=== PATIENT | male | born 1975 | race Caucasian/White ===

== ENCOUNTER → 2023-12-24 09:38 | Outpatient (REF) | payer MEDICARE, BC, SELFPAY | LOC: CLAB 09:38 | PROVIDERS: ATTENDING PHYSICIAN Surgery | DX: N39.0 Urinary tract infection, site not specified (principal) | CPT/HCPCS: 87086 ==

== ENCOUNTER 2024-08-03 06:20 | Day surgery (SDC) | payer MEDICARE, BC, SELFPAY ==
--- NOTE | 2024-07-31 15:15 | PTCARENOTE ---
Patient takes Advate for hemophilia- patient to take usual dose preop per Dr. Ahn
[2024-08-03] VITALS (8 sets, daily range): BP systolic 101–120; BP diastolic 71–89; BMI 28.1
[2024-08-03] MEDS: DILAUDID 0.25 MG IV (15:16)
[2024-08-03] MEDS: LIDOCAINE URO-JET 2% 2 SYRINGE TOPICAL (15:43)
== END 2024-08-03 17:06 | disposition home or self-care (01) ==
LOC: SDS 06:20
PROVIDERS: ATTENDING PHYSICIAN Surgery
DX: N35.912 Unspecified bulbous urethral stricture, male (principal); R33.9 Retention of urine, unspecified; K59.02 Outlet dysfunction constipation
CPT/HCPCS: 52284; 74018; 76000; C1726; C1769

== ENCOUNTER → 2025-02-26 16:02 | Outpatient (REF) | payer MEDICARE, BC, SELFPAY | LOC: RAD 16:02 | PROVIDERS: ATTENDING PHYSICIAN Internal Medicine Hematology & Oncology; FAMILY PHYSICIAN Internal Medicine Infectious Disease | DX: D66 Hereditary factor VIII deficiency (principal); M25.00 Hemarthrosis, unspecified joint; D50.9 Iron deficiency anemia, unspecified; M25.08 Hemarthrosis, other specified site; M25.50 Pain in unspecified joint; R60.0 Localized edema | CPT/HCPCS: 71275; 93970; Q9967 ==

== ENCOUNTER → 2025-06-10 12:23 | Outpatient (REF) | payer MEDICARE, BC, SELFPAY ==
[2025-06-10 13:24] LABS: Hematocrit 41.2 % (39.0-52.0); Hemoglobin 14.2 g/dL (13.0-18.0); Mean Corp Hgb Conc. 34.5 g/dL (33.0-37.0); Mean Corpuscular Volume 100.2 fL (80.0-94.0); Nucleated Red Blood Cells % 0 % (-); Platelet Count 259 10^3/uL (130-400); Red Cell Dist. Width 13.4 % (11.5-14.5)
[2025-06-10 13:52] LABS: Iron 79 ug/dl (49-181)
[2025-06-10 14:02] LABS: Total Iron Binding Capacity 320 ug/dl (261-462)
[2025-06-10 14:27] LABS: Ferritin 51.3 ng/ml (17.9-464.0)
== END ==
LOC: REG 12:23
PROVIDERS: ATTENDING PHYSICIAN Internal Medicine Hematology & Oncology; OTHER PHYSICIAN Internal Medicine Infectious Disease
DX: D66 Hereditary factor VIII deficiency (principal); M25.00 Hemarthrosis, unspecified joint; D50.9 Iron deficiency anemia, unspecified; M25.08 Hemarthrosis, other specified site; M25.50 Pain in unspecified joint
CPT/HCPCS: 36415; 82728; 83540; 83550; 85025; 85240

== ENCOUNTER 2025-07-30 12:58 | Inpatient (IN) | payer MEDICARE, BC, SELFPAY ==
[2025-07-30] VITALS (12 sets, daily range): BP systolic 131–157; BP diastolic 79–100; BMI 24.7; BMI 24.0
--- NOTE | 2025-07-30 04:59 | ED.GENMED ---
History of Present Illness
<Antonio Ponce Jr., PA-C - Last Filed: 07/30/25 06:00>
General
Chief Complaint: Crisis Evaluation
Source: patient and family
Exam Limitations: none
Time Seen by Provider: 07/30/25 04:55
Nursing documentation reviewed up to this point in time: agreed with
History of Present Illness
History of Present Illness:
50-year-old male HIV-positive hemophilia subs abuse presenting to the emergency department today with concerns of delusions and hallucinations according to mother. Mother plans to file a 302 for him. Here the patient has a flight of ideas is very
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 Denies any thoughts of harming self or others and denies any medical symptoms at this time. Patient is unaware of whether he is taking any medications appropriately.
Past History
<Antonio Ponce Jr., PA-C - Last Filed: 07/30/25 06:00>
Past History
ED Past Medical History: Psychiatric (drug abuse) and Other (HIV. Hemophilia)
Social History
Tobacco: Smoker
Drug: Cocaine, Narcotics and Other (denies IV drug use)
Personal: Single
Living: with family
Review of Systems
<Antonio Ponce Jr., PA-C - Last Filed: 07/30/25 06:00>
Review of Systems
Allergies reviewed?: Yes
All Other Systems: ROS reviewed and negative except as documented in HPI and ROS
Phy Exam
<MELISSA Dale Jr. Last Filed: 07/30/25 06:00>
Physical Exam
Physical Exam:
GENERAL: Alert , in no apparent distress
EYE: pupils equal and reactive
NECK: Supple, no significant adenopathy.
ENT: o/p clr, mmm.
CARDIAC: Regular rate and rhythm .
LUNGS: Clear breath sounds bilaterally, no acute respiratory distress, no wheezes/rales/rhonchi
ABDOMEN: Soft, without focal tenderness, no r/g, no cvat
NEUROLOGICAL: Alert and oriented, no focal neuro deficits
SKIN: Warm and dry, skin intact.
MUSCULOSKELETAL: No edema, well perfused.
PSYCH: Patient is very tangential seems to have delusions of grandeur
Course
<Antonio Ponce Jr., PA-C - Last Filed: 07/30/25 06:00>
Orders/Labs/Results
Orders:
Orders
07/30/25 04:55
Electrocardiogram (*1) Urgent
Reason for Study: Tachycardia
07/30/25 04:56
Crisis Consult Urgent
Reason for Consult: possible 302
EKG- Treatment ONCE
Urine Drug Abuse Screen Urgent
Date Specimen was Collected: 07/30/25
Time Specimen was Collected: 04:56
07/30/25 05:08
Alcohol Urgent
Basic Metabolic Panel Urgent
Complete Blood Count/With Diff Urgent
Syphilis/T. pallidum Ab Reflex Urgent
TSH Reflex To Free T4 Urgent
Comment: ADD ON
07/30/25 05:39
Consult Notification Routine
Specialty to Notify: Psychiatry
Date consulting provider notified: 07/30/25
Time consulting provider notified: 09:51
Notified:: Provider
PSYCHIATRY CONSULT Urgent
Consulting Provider: Delfina Briones
Was physician already notified: No
Reason for consult: hallucinations/delusions
07/30/25 06:20
Add On - Microbiology Urgent
Tests Added?: RPR with reflex
07/30/25 09:49
CT Head W/o Iv Contrast Urgent
Comment:
Reason For Exam: change in mental status, psychosis
HIV-1 Viral Load PCR [HIV-1 by Quantitative NAAT] [S] Urgent
Alprazolam [Xanax] 1 mg PO NOW STA
07/30/25 09:50
Urinalysis Reflex To Culture Urgent
Date Specimen was Collected: 07/30/25
Time Specimen was Collected: 09:51
07/30/25 10:17
Ankle, Right 3 view CR [CR Ankle - Right Min 3 Views *] Urgent
Comment:
Reason For Exam: swelling with pain
07/30/25 10:22
Add On- LAB Urgent
Tests Added?: TSH with reflex to T4, vit b12, folate
07/30/25 10:55
Consult Interventional Radiology [IRAD CONSULT] Urgent
Consulting Provider: Last Gallagher
Was physician already notified: Yes
Procedure being ordered, including laterality if: Lumbar puncture with complete csf analysis, PCR for
applicable: west nile virus, entero
Acknowledgement that appropriate orders are entered: Yes
07/30/25 10:59
NEUROLOGY CONSULT Routine
Consulting Provider: Luis Fernando Calix
Was physician already notified: Yes
07/30/25 11:37
Acid Fast Culture & Smear Urgent
WONG Source: Csf
Specimen Description:
CSF Cell Count Urgent
CSF Cell Count X Urgent
CSF VDRL Reflex To Titer [S] Urgent
Cryptococcal Antigen, CSF [S] Urgent
Lyme PCR, DNA [S] Urgent
Myelin Basic Protein, CSF [S] Urgent
Oligoclonal Band Profile [S] Urgent
Paraneoplastic Ab IgG, CSF [S] Urgent
Spinal Fluid Glucose Urgent
Spinal Fluid Protein Urgent
CSF Culture with Gram Stain Urgent
WONG Source: Csf
Specimen Description:
Fungus Culture Urgent
WONG Source: Csf
Specimen Description:
Gram Stain Routine
WONG Source: Csf
Specimen Description:
Meningitis Panel, CSF by PCR Urgent
WONG Source: Csf
Specimen Description:
07/30/25 11:55
Admit/Transfer Patient As Directed
Co-Sign Provider:
Level of Care: Inpatient admission
Assign to:: IMU- Intermediate Care
Physician / Group: Clark Hanks
Diagnosis: Acute Delirium vs Acute TME vs Psychosis
Reason for Hospitalization: Acute Delirium vs Acute TME vs Psychosis
Expected length of stay greater than two midnights?: Yes
ELOS- Estimated Length of Stay in days: 3
I certify the patient meets the requirements for IP care: Yes
07/30/25 11:58
PRN Pain Medication Management As Directed
May give lesser potent ordered pain med per pt: Yes
preference::
Protocol:: Medication orders for pain may be administered in a
manner that supports deferring to patient preference
when the pt is:
- Requesting an ordered lesser potent pain medication.
Least to most potent pain medications are defined
as: acetaminophen < NSAID < tramadol < opioids
(morphine, oxycodone, hydromorphone).
- Requesting a lesser dose of the same medication IF
ORDERED.
- Requesting a less intrusive route of administration
if both routes are prescribed by the provider (PO <
IV).
07/30/25 12:09
MR Brain Without Contrast Routine
Comment:
Reason For Exam: ACute delirium
Recent pill cam endoscopy?: No
07/30/25 12:13
INFECTIOUS DISEASE CONSULT Routine
Consulting Provider: Oralia Ascencio
Was physician already notified: Yes
07/30/25 12:17
Code Status As Directed
Resuscitation Status: Do not resuscitate
Reached after discussion with pt or family/Healthcare POA: Yes
Bisacodyl [Dulcolax] 10 mg RECTAL [id number] PRN
Docusate W/Senna [Senokot-S] 1 tablet PO BIDPRN PRN
Polyethylene Glycol Powder [Miralax] 17 grams PO DAILYPRN PRN
Activity As Directed
Activity Level: As Tolerated
Vital Signs As Directed
Frequency: Per unit guidelines
07/30/25 12:32
PT/INR [Prothrombin Time] Urgent
Comment: IRAD procedure
07/30/25 12:33
DNR Bracelet Application ONCE
07/30/25 12:48
Blood Culture Routine
WONG Source: Blood/Venous
Specimen Description:
07/30/25 13:00
Acyclovir [Zovirax Injection] 500 mg 0.9% Sodium Chloride 100 ml [Nss] 100 ml IV Q8H
Abnormal Lab Results
07/30/25
05:08
RBC 3.40 L 10^6/uL
(4.70-6.10)
Hgb 11.7 L g/dL
(13.0-18.0)
Hct 32.8 L %
(39.0-52.0)
MCV 96.5 H fL
(80.0-94.0)
MCH 34.4 H pg
(27.0-31.0)
Absolute Lymphs (auto) 1.0 L 10^3/uL
(1.2-3.4)
Lymphocytes % 20.4 L %
(20.5-51.1)
Monocytes % 10.7 H %
(1.7-9.3)
Carbon Dioxide 19 L mmol/L
(22-30)
07/30/25 05:08
07/30/25 05:08
Vital Signs
Initial and Last Documented VS:
Initial Vital Signs
Temp Pulse Resp BP Pulse Ox
98.9 F 84 18 140/95 99
07/30/25 04:57 07/30/25 04:57 07/30/25 04:57 07/30/25 04:57 07/30/25 04:57
Last Documented Vital Signs
Temp Pulse Resp BP Pulse Ox
97.6 F 82 20 134/97 99
07/30/25 11:05 07/30/25 11:05 07/30/25 11:05 07/30/25 11:05 07/30/25 11:05
<Geovani Redding PA-C - Last Filed: 07/30/25 12:57>
Orders/Labs/Results
Orders:
Orders
07/30/25 04:55
Electrocardiogram (*1) Urgent
Reason for Study: Tachycardia
07/30/25 04:56
Crisis Consult Urgent
Reason for Consult: possible 302
EKG- Treatment ONCE
Urine Drug Abuse Screen Urgent
Date Specimen was Collected: 07/30/25
Time Specimen was Collected: 04:56
07/30/25 05:08
Alcohol Urgent
Basic Metabolic Panel Urgent
Complete Blood Count/With Diff Urgent
Syphilis/T. pallidum Ab Reflex Urgent
TSH Reflex To Free T4 Urgent
Comment: ADD ON
07/30/25 05:39
Consult Notification Routine
Specialty to Notify: Psychiatry
Date consulting provider notified: 07/30/25
Time consulting provider notified: 09:51
Notified:: Provider
PSYCHIATRY CONSULT Urgent
Consulting Provider: Delfina Briones
Was physician already notified: No
Reason for consult: hallucinations/delusions
07/30/25 06:20
Add On - Microbiology Urgent
Tests Added?: RPR with reflex
07/30/25 09:49
CT Head W/o Iv Contrast Urgent
Comment:
Reason For Exam: change in mental status, psychosis
HIV-1 Viral Load PCR [HIV-1 by Quantitative NAAT] [S] Urgent
Alprazolam [Xanax] 1 mg PO NOW STA
07/30/25 09:50
Urinalysis Reflex To Culture Urgent
Date Specimen was Collected: 07/30/25
Time Specimen was Collected: 09:51
07/30/25 10:17
Ankle, Right 3 view CR [CR Ankle - Right Min 3 Views *] Urgent
Comment:
Reason For Exam: swelling with pain
07/30/25 10:22
Add On- LAB Urgent
Tests Added?: TSH with reflex to T4, vit b12, folate
07/30/25 10:55
Consult Interventional Radiology [IRAD CONSULT] Urgent
Consulting Provider: Last Gallagher
Was physician already notified: Yes
Procedure being ordered, including laterality if: Lumbar puncture with complete csf analysis, PCR for
applicable: west nile virus, entero
Acknowledgement that appropriate orders are entered: Yes
07/30/25 10:59
NEUROLOGY CONSULT Routine
Consulting Provider: Luis Fernando Calix
Was physician already notified: Yes
07/30/25 11:37
Acid Fast Culture & Smear Urgent
WONG Source: Csf
Specimen Description:
CSF Cell Count Urgent
CSF Cell Count X Urgent
CSF VDRL Reflex To Titer [S] Urgent
Cryptococcal Antigen, CSF [S] Urgent
Lyme PCR, DNA [S] Urgent
Myelin Basic Protein, CSF [S] Urgent
Oligoclonal Band Profile [S] Urgent
Paraneoplastic Ab IgG, CSF [S] Urgent
Spinal Fluid Glucose Urgent
Spinal Fluid Protein Urgent
CSF Culture with Gram Stain Urgent
WONG Source: Csf
Specimen Description:
Fungus Culture Urgent
WONG Source: Csf
Specimen Description:
Gram Stain Routine
WONG Source: Csf
Specimen Description:
Meningitis Panel, CSF by PCR Urgent
WONG Source: Csf
Specimen Description:
07/30/25 11:55
Admit/Transfer Patient As Directed
Co-Sign Provider:
Level of Care: Inpatient admission
Assign to:: IMU- Intermediate Care
Physician / Group: Clark Hanks
Diagnosis: Acute Delirium vs Acute TME vs Psychosis
Reason for Hospitalization: Acute Delirium vs Acute TME vs Psychosis
Expected length of stay greater than two midnights?: Yes
ELOS- Estimated Length of Stay in days: 3
I certify the patient meets the requirements for IP care: Yes
07/30/25 11:58
PRN Pain Medication Management As Directed
May give lesser potent ordered pain med per pt: Yes
preference::
Protocol:: Medication orders for pain may be administered in a
manner that supports deferring to patient preference
when the pt is:
- Requesting an ordered lesser potent pain medication.
Least to most potent pain medications are defined
as: acetaminophen < NSAID < tramadol < opioids
(morphine, oxycodone, hydromorphone).
- Requesting a lesser dose of the same medication IF
ORDERED.
- Requesting a less intrusive route of administration
if both routes are prescribed by the provider (PO <
IV).
07/30/25 12:09
MR Brain Without Contrast Routine
Comment:
Reason For Exam: ACute delirium
Recent pill cam endoscopy?: No
07/30/25 12:13
INFECTIOUS DISEASE CONSULT Routine
Consulting Provider: Oralia Ascencio
Was physician already notified: Yes
07/30/25 12:17
Code Status As Directed
Resuscitation Status: Do not resuscitate
Reached after discussion with pt or family/Healthcare POA: Yes
Bisacodyl [Dulcolax] 10 mg RECTAL [id number] PRN
Docusate W/Senna [Senokot-S] 1 tablet PO BIDPRN PRN
Polyethylene Glycol Powder [Miralax] 17 grams PO DAILYPRN PRN
Activity As Directed
Activity Level: As Tolerated
Vital Signs As Directed
Frequency: Per unit guidelines
07/30/25 12:32
PT/INR [Prothrombin Time] Urgent
Comment: IRAD procedure
07/30/25 12:33
DNR Bracelet Application ONCE
07/30/25 12:48
Blood Culture Routine
WONG Source: Blood/Venous
Specimen Description:
07/30/25 13:00
Acyclovir [Zovirax Injection] 500 mg 0.9% Sodium Chloride 100 ml [Nss] 100 ml IV Q8H
Abnormal Lab Results
07/30/25
05:08
RBC 3.40 L 10^6/uL
(4.70-6.10)
Hgb 11.7 L g/dL
(13.0-18.0)
Hct 32.8 L %
(39.0-52.0)
MCV 96.5 H fL
(80.0-94.0)
MCH 34.4 H pg
(27.0-31.0)
Absolute Lymphs (auto) 1.0 L 10^3/uL
(1.2-3.4)
Lymphocytes % 20.4 L %
(20.5-51.1)
Monocytes % 10.7 H %
(1.7-9.3)
Carbon Dioxide 19 L mmol/L
(22-30)
07/30/25 05:08
07/30/25 05:08
Vital Signs
Initial and Last Documented VS:
Initial Vital Signs
Temp Pulse Resp BP Pulse Ox
98.9 F 84 18 140/95 99
07/30/25 04:57 07/30/25 04:57 07/30/25 04:57 07/30/25 04:57 07/30/25 04:57
Last Documented Vital Signs
Temp Pulse Resp BP Pulse Ox
97.6 F 82 20 134/97 99
07/30/25 11:05 07/30/25 11:05 07/30/25 11:05 07/30/25 11:05 07/30/25 11:05
<Isael Dunn, DO - Last Filed: 07/30/25 10:17>
Orders/Labs/Results
Orders:
Orders
07/30/25 04:55
Electrocardiogram (*1) Urgent
Reason for Study: Tachycardia
07/30/25 04:56
Crisis Consult Urgent
Reason for Consult: possible 302
EKG- Treatment ONCE
Urine Drug Abuse Screen Urgent
Date Specimen was Collected: 07/30/25
Time Specimen was Collected: 04:56
07/30/25 05:08
Alcohol Urgent
Basic Metabolic Panel Urgent
Complete Blood Count/With Diff Urgent
Syphilis/T. pallidum Ab Reflex Urgent
TSH Reflex To Free T4 Urgent
Comment: ADD ON
07/30/25 05:39
Consult Notification Routine
Specialty to Notify: Psychiatry
Date consulting provider notified: 07/30/25
Time consulting provider notified: 09:51
Notified:: Provider
PSYCHIATRY CONSULT Urgent
Consulting Provider: Delfina Briones
Was physician already notified: No
Reason for consult: hallucinations/delusions
07/30/25 06:20
Add On - Microbiology Urgent
Tests Added?: RPR with reflex
07/30/25 09:49
CT Head W/o Iv Contrast Urgent
Comment:
Reason For Exam: change in mental status, psychosis
HIV-1 Viral Load PCR [HIV-1 by Quantitative NAAT] [S] Urgent
Alprazolam [Xanax] 1 mg PO NOW STA
07/30/25 09:50
Urinalysis Reflex To Culture Urgent
Date Specimen was Collected: 07/30/25
Time Specimen was Collected: 09:51
07/30/25 10:17
Ankle, Right 3 view CR [CR Ankle - Right Min 3 Views *] Urgent
Comment:
Reason For Exam: swelling with pain
07/30/25 10:22
Add On- LAB Urgent
Tests Added?: TSH with reflex to T4, vit b12, folate
07/30/25 10:55
Consult Interventional Radiology [IRAD CONSULT] Urgent
Consulting Provider: Last Gallagher
Was physician already notified: Yes
Procedure being ordered, including laterality if: Lumbar puncture with complete csf analysis, PCR for
applicable: west nile virus, entero
Acknowledgement that appropriate orders are entered: Yes
07/30/25 10:59
NEUROLOGY CONSULT Routine
Consulting Provider: Luis Fernando Calix
Was physician already notified: Yes
07/30/25 11:37
Acid Fast Culture & Smear Urgent
WONG Source: Csf
Specimen Description:
CSF Cell Count Urgent
CSF Cell Count X Urgent
CSF VDRL Reflex To Titer [S] Urgent
Cryptococcal Antigen, CSF [S] Urgent
Lyme PCR, DNA [S] Urgent
Myelin Basic Protein, CSF [S] Urgent
Oligoclonal Band Profile [S] Urgent
Paraneoplastic Ab IgG, CSF [S] Urgent
Spinal Fluid Glucose Urgent
Spinal Fluid Protein Urgent
CSF Culture with Gram Stain Urgent
WONG Source: Csf
Specimen Description:
Fungus Culture Urgent
WONG Source: Csf
Specimen Description:
Gram Stain Routine
WONG Source: Csf
Specimen Description:
Meningitis Panel, CSF by PCR Urgent
WONG Source: Csf
Specimen Description:
07/30/25 11:55
Admit/Transfer Patient As Directed
Co-Sign Provider:
Level of Care: Inpatient admission
Assign to:: IMU- Intermediate Care
Physician / Group: Clark Hanks
Diagnosis: Acute Delirium vs Acute TME vs Psychosis
Reason for Hospitalization: Acute Delirium vs Acute TME vs Psychosis
Expected length of stay greater than two midnights?: Yes
ELOS- Estimated Length of Stay in days: 3
I certify the patient meets the requirements for IP care: Yes
07/30/25 11:58
PRN Pain Medication Management As Directed
May give lesser potent ordered pain med per pt: Yes
preference::
Protocol:: Medication orders for pain may be administered in a
manner that supports deferring to patient preference
when the pt is:
- Requesting an ordered lesser potent pain medication.
Least to most potent pain medications are defined
as: acetaminophen < NSAID < tramadol < opioids
(morphine, oxycodone, hydromorphone).
- Requesting a lesser dose of the same medication IF
ORDERED.
- Requesting a less intrusive route of administration
if both routes are prescribed by the provider (PO <
IV).
07/30/25 12:09
MR Brain Without Contrast Routine
Comment:
Reason For Exam: ACute delirium
Recent pill cam endoscopy?: No
07/30/25 12:13
INFECTIOUS DISEASE CONSULT Routine
Consulting Provider: Oralia Ascencio
Was physician already notified: Yes
07/30/25 12:17
Code Status As Directed
Resuscitation Status: Do not resuscitate
Reached after discussion with pt or family/Healthcare POA: Yes
Bisacodyl [Dulcolax] 10 mg RECTAL [id number] PRN
Docusate W/Senna [Senokot-S] 1 tablet PO BIDPRN PRN
Polyethylene Glycol Powder [Miralax] 17 grams PO DAILYPRN PRN
Activity As Directed
Activity Level: As Tolerated
Vital Signs As Directed
Frequency: Per unit guidelines
07/30/25 12:32
PT/INR [Prothrombin Time] Urgent
Comment: IRAD procedure
07/30/25 12:33
DNR Bracelet Application ONCE
07/30/25 12:48
Blood Culture Routine
WONG Source: Blood/Venous
Specimen Description:
07/30/25 13:00
Acyclovir [Zovirax Injection] 500 mg 0.9% Sodium Chloride 100 ml [Nss] 100 ml IV Q8H
Abnormal Lab Results
07/30/25
05:08
RBC 3.40 L 10^6/uL
(4.70-6.10)
Hgb 11.7 L g/dL
(13.0-18.0)
Hct 32.8 L %
(39.0-52.0)
MCV 96.5 H fL
(80.0-94.0)
MCH 34.4 H pg
(27.0-31.0)
Absolute Lymphs (auto) 1.0 L 10^3/uL
(1.2-3.4)
Lymphocytes % 20.4 L %
(20.5-51.1)
Monocytes % 10.7 H %
(1.7-9.3)
Carbon Dioxide 19 L mmol/L
(22-30)
07/30/25 05:08
07/30/25 05:08
Vital Signs
Initial and Last Documented VS:
Initial Vital Signs
Temp Pulse Resp BP Pulse Ox
98.9 F 84 18 140/95 99
07/30/25 04:57 07/30/25 04:57 07/30/25 04:57 07/30/25 04:57 07/30/25 04:57
Last Documented Vital Signs
Temp Pulse Resp BP Pulse Ox
97.6 F 82 20 134/97 99
07/30/25 11:05 07/30/25 11:05 07/30/25 11:05 07/30/25 11:05 07/30/25 11:05
<Antonio Ponce Jr., PA-C - Last Filed: 07/30/25 06:00>
MDM/Problems Addressed
MDM/Problems Addressed:
50-year-old male presenting to the emergency department today with concerns of altered mental status, hallucinations delusions. Patient in no obvious distress here but does have pressured speech and is very tangential with flight of ideas. Vital
signs are normal. At this point patient denies any specific suicidal or homicidal ideation. Patient is cooperative while here in the ER. He is well kempt. Patient does not appear to meet any specific 302 criteria. He is willing to speak with
psychiatry while here plan to have him speak with psychiatry at this point for further assessment.
<Geovani Redding PA-C - Last Filed: 07/30/25 12:57>
*Pulse Oximetry
Patient hypoxic: no
*Critical Care Note
Total Time (30-74mins, 75-104mins- exclusive of procedures): Not Applicable
<Geovani Redding PA-C - Last Filed: 07/30/25 12:57>
Patient Management
Discussion with other providers: Hospitalist and Napper Runner
Escalation/DeEscalation of care consider admission/obs:
Patient received in signout pending psychiatry evaluation and disposition planning
Patient was seen by psychiatry who is concern for possible medical cause for patient's acute change in mental status/psychosis. Given his past medical history of HIV and hemophilia recommends further workup with CT of the head, chemistry, UDS,
thyroid studies and patient may need a lumbar puncture. I do think this is reasonable given as of 48 hours ago family is reporting patient was at his usual baseline, able to take all of his medications, recall all history and at this time patient
is not able to do any of this. Hospitalist team was notified and accepts for continued evaluation and treatment. Psychiatry to continue seeing the patient in consult
ED Attending Note
<Antonio Ponce Jr., PA-C - Last Filed: 07/30/25 06:00>
-
Portions of this chart may have been created with voice recognition software.� Occasional wrong word or��sound alike� substitutions may have occurred due to the inherent limitations of voice recognition software.
<Isael Dunn, DO - Last Filed: 07/30/25 10:17>
ED Attending Note
Patient seen and examined by attending physician: Yes
ED Attending Note:
I have reviewed and agree with history and treatment plan by Julio Ponce PA-C and Douglas Redding PA-C. My exam revealed 50 yo male in no acute distress. Tangential thinking. hallucinations. Unclear etiology. Possibly substance abuse vs organic
cause. Admit for further workup. Psychiatry seeing in consult.
Discharge Plan
Departure
Patient Disposition: Admit
Date of Disposition: 07/30/25
Time of Disposition: 09:53
Presentation/result/management discussed w/ accepting MD/DO: Hospitalist
Discharge Problem:
Psychosis
Prescriptions:
No Action
esomeprazole magnesium [Nexium] 40 MG capsule,delayed release(DR/EC)
40 mg PO DAILY
Isentress 400 MG tablet
400 mg PO BID
polyethylene glycol 3350 [Miralax] 17 gram Powder In Packet
17 g PO DAILYPRN PRN (Reason: constipation)
valacyclovir [Valtrex] 1 gram Tablet
1,000 mg PO BID
ondansetron HCl [Zofran] 8 mg Tablet
8 mg PO [id number] PRN (Reason: nausea)
tamsulosin [Flomax] 0.4 mg Capsule
0.4 mg PO DAILY
imiquimod 5 % Cream In Packet
1 applic TOPICAL DAILY
alprazolam [Xanax] 2 mg Tablet
2 mg PO BIDPRN PRN (Reason: anxiety)
hydromorphone 4 mg Tablet
4 mg PO Q6HPRN PRN (Reason: severe pains)
maraviroc 300 mg Tablet
300 mg PO BID
Descovy 200-25 mg Tablet
1 tab PO DAILY
Referrals:
UNKNOWN - PT DOES,NOT KNOW [Family Provider]
Interventions
Interventions:
*Risk Screen - Suicide Last Done: 07/30/25 05:00
*General Assessment Last Done: 07/30/25 05:00
*Neglect/Abuse Screening Last Done: 07/30/25 05:00
*ED- Fall Risk Assessment Last Done: 07/30/25 05:00
*ED COVID-19 Vaccine History Last Done: 07/30/25 05:00
ED-Psychological Assessment Last Done: 07/30/25 07:30
Discharge Date and Time
Print Language: ARMENIAN
[2025-07-30 05:24] LABS: Hematocrit 32.8 % (39.0-52.0); Hemoglobin 11.7 g/dL (13.0-18.0); Mean Corp Hgb Conc. 35.7 g/dL (33.0-37.0); Mean Corpuscular Volume 96.5 fL (80.0-94.0); Nucleated Red Blood Cells % 0 % (-); Platelet Count 150 10^3/uL (130-400); Red Cell Dist. Width 13.4 % (11.5-14.5)
[2025-07-30 05:44] LABS: Blood Urea Nitrogen 14 mg/dl (9-20); Calcium 9.0 mg/dl (8.4-10.2); Carbon Dioxide 19 mmol/L (22-30); Chloride 105 mmol/L (98-107); Estimated Creatinine Clearance 112 ml/min; Glucose 87 mg/dl (70-99); Potassium 3.6 mmol/L (3.5-5.1); Sodium 137 mmol/L (135-145); eGFR > 60.00
--- NOTE | 2025-07-30 09:37 | EDRN ---
psychiatrist currently at the pts bedside
[2025-07-30] MEDS: XANAX 1 MG PO (10:01)
--- NOTE | 2025-07-30 10:09 | EDRN ---
this RN noticed that the pt was limping upon ambulating to the bathroom, this RN asked the pt what happened and why the pt is limping and the pt stated, 'I twisted my right ankle the other day', right ankle is swollen, Geovani BESS notified
--- NOTE | 2025-07-30 10:10 | EDRN ---
the pt is asking for food, this RN called the kitchen and ordered a lunch tray for the pt, this RN provided the pt with an ER lunch box, the pt asked [facility] RN if this RN could put tellez on the sandwich and this RN did that, this RN also provided the
pt with apple juice with ice
--- NOTE | 2025-07-30 10:28 | CS.PSYCHR ---
Consult Summary - Psychiatry
-
pt seen for hallucinations/delusions
50 yo man brought to ED by EMS after police called to scene. Was outside in underwear shouting, pointing at non-existent people, very animated. Brought into home through open door. mother gave history that since previous day patient had been acting
very different and bizarre. Had been totally himself, then suddently asked her about the birds flying though the house. Began moving things from downstairs to upstairs, had left sink running to overflowing on kitchen floor, with coffee pot and hot
sauce spilled. Here in ED pt unable to have rational conversation, insists he has been here for four days, points to his clothes on chair and asks me when that rachna is being admitted.
Able to tell me that he has hemophilia and HIV, takes narcotics for arthritic pain and xanax for anxiety. Denies past psychiatric hospitalizations, has seen psychiatrists off and on due to life-long life threatening illness (foudn to have HIV age 15
due to factor infusions.)
Mother says no prior mental status changes like this.
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 Worked until 2015, now on disability.
One sister in [place], not too close, mother is 84, worries about how he will do alone.
Medications verified by pharmacy include valtrex 1000 bid for HSV, flomax 0.4 (has urethral stricture), xanax 2 bid, DEscovy, Nexium, hydromophrone 4 mg, maraviroc, zofran
Has history of long QTc
MSE: annimated wd/wn white male wearing boxers and gowns (backwards) pacing, gesturing, pressured speech, fearful at times, appears to be responding to internal stimuli. denies any subjective symptoms, though believes he has been in this room for at
least 4 days and is upset that I contradict this. Aware he is in hospital. Told me he lives in [place] until I remind him that the police brought him from [place], says that he and his mother had rented a place for a little while
Impression: hemophilia, HIV, long QT syndrome and now delirium, unknown cause, acute onset. Unclear if related to exogenous substance (mother does not think so) xanax or opioid withdrawal (possible but unclear why now, this is all chronic) more
concerning would be occult PHOTOENGRAVING ETCHER process such as viral infection given his immunocompromise state, needs head CT, likely LP, TSH, UDS, RPR, vitamin levels, sed rate (likely to be high with chronic arthritis) EKG consultation with primary
at this point would use xanax for sedation. avoid antipsychotics for now due to long QT syndrome
--- NOTE | 2025-07-30 10:39 | CM ---
Addendum entered by Karli Ceballos 07/30/25 11:46:
Initial assessment completed with patient's mother via phone. Her Cell phone # [phone]; land line is identified with her primary contact information
Patient lives w/ mother; multilevel home; she reported that prior to change in mental status, patient was oriented and independent with ADLs and ambulation; no history of SNF or Home Health; has a nebulizer but does not use it. Mother will
transport home when stable; she did not sign sign 302 for son
Per Crisis, patient is back up 302 by Police if he tries to leave the hospital
Plan: Discharge to home when medically stable; Case Management will monitor for needs
Addendum entered by Karli Ceballos 07/30/25 10:47:
Correction: Per Crisis, patient is back up 302 by Police if he tries to leave hospital
Patient being admitted for medical needs
Original Note:
Crisis notified case management; reported that patient is a 302; patient not trying to leave
--- NOTE | 2025-07-30 10:42 | EDRN ---
resident currently at the pts bedside
--- NOTE | 2025-07-30 11:01 | HPS.HSE ---
Addendum entered and electronically signed by Clark Hanks MD 07/30/25 14:03:
50 male history of HIV presenting with 2-day history of hallucinations agitated/aggressive ambulating in the community in his underwear yelling and pointing.
Toxic metabolic encephalopathy versus acute delusions versus acute psychosis
Check B12 folate HIV syphilis
Check CD4 count
Check CT brain
Check EEG
Check MRI brain
Consult IR
LP
LP fluid studies which should include cryptococcal, Lyme, AFB, paraneoplastic, NMDA, cytology, culture
Avoid sedatives
HIV
Continue HAART
Original Note:
Family Physician
-
Family Physician: NOT KNOW UNKNOWN - PT DOES
Chief Complaint
-
Delusions and hallucinations
History of Present Illness
Patient is a 50-year-old man, brought to ED by EMS after police called to the scene. Patient sedated at the time of interview so history obtained mostly from chart review. He was brought by EMS services when he was found by police initially at
[place] in underwear shouting and hallucinating. As per the mother, patient was alright a day ago and then suddenly he started to see birds flying through the house, and his behavior started to change that worried her. In the ED patient was
unable to have a clear conversation but he believes that he has been in the hospital from last 4 days. His thought process is tangential and points out to random people in the room.
Psychiatry consulted, who suggested to give Xanax to calm down the patient and have a head CT. Head CT negative for any acute intracranial abnormality. BMP looks good.
Patient is hemodynamically stable and currently sedated
Medical History
Past Medical History
Past Medical History: Reports Other (Hemophilia, substance abuse, HIV, long QT syndrome)
Past Surgical History: Reports Other (Umblical and inguinal hernia repair 2014, )
Social History
Unable to obtain full social history at this time due to: Other (Patient not oriented)
Family History
Family History: Other ( per charts family history of heart disease and alzheimer's disease)
Allergies / Home Medications
Allergies reflects when Allergies were last updated in [facility].
Home Medications with original date entered in [facility]
Allergy/Medication List:
Allergies
Allergy/AdvReac Type Severity Reaction Status Date / Time
aspirin Allergy hemophilia Verified 08/03/24 13:10
Home Medications
esomeprazole magnesium 40 mg capsule,delayed release (Nexium) 40 mg PO DAILY Gastrointestinal issue 09/30/19
raltegravir 400 mg tablet (Isentress) 400 mg PO BID Infection 09/30/19
alprazolam 2 mg tablet (Xanax) 2 mg PO BIDPRN PRN anxiety 07/30/25
emtricitabine 200 mg-tenofovir alafenamide fumarate 25 mg tablet (Descovy) 1 tab PO DAILY 07/30/25
hydromorphone 4 mg tablet 4 mg PO Q6HPRN PRN severe pains 07/30/25
imiquimod 5 % topical cream packet 1 applic topical DAILY 07/30/25
maraviroc 300 mg tablet 300 mg PO BID 07/30/25
ondansetron HCl 8 mg tablet 8 mg PO [id number] PRN nausea 07/30/25
polyethylene glycol 3350 17 gram oral powder packet (Miralax) 17 g PO DAILYPRN PRN constipation 07/30/25
tamsulosin 0.4 mg capsule (Flomax) 0.4 mg PO DAILY 07/30/25
valacyclovir 1 gram tablet (Valtrex) 1,000 mg PO BID 07/30/25
Review of Systems
-
Unable to obtain full review of systems at this time due to: Other (Patient oriented to name only/ altered mental status)
Physical Exam
Vital Signs
Vital Signs
Temp Pulse Resp BP Pulse Ox
98.6 F 82 16 131/86 100
07/30/25 07:30 07/30/25 07:30 07/30/25 07:30 07/30/25 07:30 07/30/25 07:30
Physical Exam
General: Well Developed, Well Nourished and Other (very sleep, sudden jerky movements)
Respiratory: Clear; No Wheezes, Rales or Rhonchi
Cardiac: S1/S2 and Regular Rhythm
GI: Soft, Non Distended and Normal Bowel Sounds
Musculoskeletal: No Clubbing, No Cyanosis and No Edema
Skin: Other (Bruises on face , arms and legs)
Neuro: Oriented (to name only), Nonfocal/grossly intact and Sedated
Psych: Agitated and Other (confused, tagential thought process)
Laboratory Results
-
07/30/25 05:08
07/30/25 05:08
Impression/Plan
-
IMPRESSION:
50-year-old male, admitted in acute psychosis with pacing, pressured speech and delusions/hallucinations. No previous history of any psychiatric conditions, has been using as needed Xanax and opioids for her chronic pain for a long time. Sudden
change in mental status
Most likely related to HIV
An acute viral infection due to immunocompromised state
Metabolic
Assessment/PLAN:
#ACute Delirium vs TME vs New onset psychosis
No past medical history of any psychiatric issues
Past medical history significant for hemophilia, HIV, long QT syndrome, substance use
CT head negative for any acute abnormalities
Urine drug screen pending
Follow vitamin B12, TSH, folate, RPR, CD4 count
Consult IRAD-Check lumbar puncture
Psych recommendations appreciated
Given long QT syndrome, psych would like to avoid any medications for now
We have wide D/D -continue workup for TRIP FOLLOWER vs Metabolic Vs Infectious Vs psychiatric causes
#HIV
Check CD4 count
Check lumbar puncture and Brain MRI
Empiric antibiotic coverage
# HSV
Continue acyclovir
#History of hemophilia
Diet-n.p.o. for now
DVT prophylaxis-sequential compression devices
--- NOTE | 2025-07-30 11:04 | EDRN ---
Dr. Calix neurologist currently at the [facility] bedside
--- NOTE | 2025-07-30 11:07 | CON.NEURO4 ---
Addendum entered and electronically signed by Luis Fernando Calix MD 07/30/25 13:19:
Studies reviewed.
I have personally examined the patient. I reviewed and agree with the WINDOW CLEANER's Note.
My addenda:
Lethargic, transiently interactive. No acute distress.
Speech clear with minimal output.
Follows no requests. No tremor.
Extra-ocular movements grossly intact.
Facial movements full and symmetric. Hearing intact to normal conversational volume.
Normal UE movements bilaterally.
Neck: full ROM.
Chest: no dyspnea
Heart: no JVD
Ext: (-) Clubbing, (-) Cyanosis, (-) Edema
IMPRESSIONS/RECOMMENDATIONS:
Abrupt onset of change in mental status and patient with prior history of psychiatric disease and HIV positivity. He presented with psychosis and hallucinations of unclear etiology.
Check urine drug screen
Check for additional metabolic causes
Check lumbar puncture
Check MRI of brain with and without contrast
Ask for assistance from infectious disease
Would avoid additional sedative agents
Provide thiamine
Will continue to follow peripherally.
Original Note:
Consultation - Neurology 4
-
CONSULTING PHYSICIAN: Luis Fernando Calix MD
REFERRING PHYSICIAN: Hospitalists/Dr. Iram MD Resident
DICTATED BY: LEONA Armstrong
DATE/TIME OF REQUEST: 07/30/25
DATE/TIME OF CONSULTATION: 07/30/25
Reason for Consultation: Change in mental status
History of Present Illness:
This is a 50-year-old male who has presented to the hospital with report of bizzare behavior and hallucinations. Patient received alprazolam this morning and is currently obtunded, unable to participate in conversation and minimally cooperative
with examination. Per medical records, police were called due to patient walking outside in his underwear, yelling, pointing/talking to non-existent people. CT head was obtained on arrival and is negative for any acute abnormalities. Toxicology is
pending.
Past Medical History: HIV secondary to plasma infusion, hemophilia A w/ h/o hemarthroses
Surgical History: L ulnar nerve transposition x2, hernia repair
Family History: Reviewed and noncontributory.
Social History: Cocaine and narcotic abuse. Former smoker.
Allergies: Aspirin.
Home Medications: See below.
Review of Symptoms:
Per the HPI. I am unable to obtain a complete review of systems�because of patient's inability to provide history.
Physical Exam:
The patient is afebrile, abdomen is nondistended, breathing is unlabored, skin is warm and dry, no edema.
Neurologic Examination:
The patient is obtunded. Opens eyes to loud voice or touch. He follows rare commands and answers rare questions appropriate. There is no aphasia or dysarthria. On cranial nerve assessment, pupils are 3 mm bilateral, round and reactive to light and
accommodation. JEFFREY visual miller and EOMs. There is no facial asymmetry. Hearing is intact bilaterally to normal conversation volume. Tongue palate and uvula are midline. Moves all extremities full strength spontaneously. JEFFREY drift. No involuntary
movement noted. Deep tendon reflexes are 2+ bilateral upper and lower extremities and Babinski is absent bilaterally. JEFFREY sensation, double simultaneous, coordination.
Lab Results: See below.
Neuro Imaging:
1. CT Head 07/30/25: Unremarkable unenhanced CT of the brain.
Differentials for the patient's presentation include:
1. Change in mental status; etiology is likely metabolic disturbance in the setting of substance use, cannot entirely exclude encephalitis in the setting of immunocompromised state.
Patient has the following risk factors for their symptoms: HIV, drug abuse
Recommendations:
-Recommend lumbar puncture.
-Infectious disease evaluation.
Discussed patient care with: Dr. Calix
Vital Signs and Labs
-
Vital Signs and Labs:
Vital Signs
Temp Pulse Resp BP Pulse Ox
97.6 F 82 20 134/97 99
07/30/25 11:05 07/30/25 11:05 07/30/25 11:05 07/30/25 11:05 07/30/25 11:05
Lab Results
07/30/25 05:08
07/30/25 05:08
Sodium 137 mmol/L (135-145) 07/30/25 05:08
Potassium 3.6 mmol/L (3.5-5.1) 07/30/25 05:08
BUN 14 mg/dl (9-20) 07/30/25 05:08
Glucose 87 mg/dl (70-99) 07/30/25 05:08
Calcium 9.0 mg/dl (8.4-10.2) 07/30/25 05:08
Medications
-
Home Medications
�Medication �Instructions �Recorded
esomeprazole magnesium 40 mg 40 mg PO DAILY Gastrointestinal 09/30/19
capsule,delayed release (Nexium) issue
raltegravir 400 mg tablet 400 mg PO BID Infection 09/30/19
(Isentress)
alprazolam 2 mg tablet (Xanax) 2 mg PO BIDPRN PRN anxiety 07/30/25
emtricitabine 200 mg-tenofovir 1 tab PO DAILY 07/30/25
alafenamide fumarate 25 mg tablet
(Descovy)
hydromorphone 4 mg tablet 4 mg PO Q6HPRN PRN severe pains 07/30/25
imiquimod 5 % topical cream packet 1 applic topical DAILY 07/30/25
maraviroc 300 mg tablet 300 mg PO BID 07/30/25
ondansetron HCl 8 mg tablet 8 mg PO [id number] PRN nausea 07/30/25
polyethylene glycol 3350 17 gram 17 g PO DAILYPRN PRN constipation 07/30/25
oral powder packet (Miralax)
tamsulosin 0.4 mg capsule (Flomax) 0.4 mg PO DAILY 07/30/25
valacyclovir 1 gram tablet 1,000 mg PO BID 07/30/25
(Valtrex)
--- NOTE | 2025-07-30 11:43 | EDRN ---
hospitalist currently at the pts bedside with residents
[2025-07-30 13:11] LABS: Syphilis/T. pallidum Ab Reflex Negative (Negative)
--- NOTE | 2025-07-30 13:57 | CON.ID ---
Consultation
-
Date/Time Consultation Requested: July 30, 2025 1200
Date/Time Consultation Performed: July 30, 2025 1400
Requesting Provider: Dr. Sofiya Alonzo
Performing Provider: Dr. Oralia Ascencio
Reason for Consultation: HIV, change in mental status
Chief Complaint / Past History
Chief Complaint
Change in mental status
History of Present Illness
50-year-old male with history of HIV well-controlled CD4 450 (37%) viral load less than 20, hemophilia A, chronic pain syndrome who was picked up by police last night and brought to the ER when he was found out in the street in his underwear yelling
and hallucinating. In ER, afebrile, normal white count. Urine tox screen pending. CT of the head unremarkable. MRI of the brain pending. Patient states he was out with his friends last night and was out in the rain. He cannot recall exactly
events. He denies excessive alcohol or drug use (other than his usual marijuana, alprazolam, and hydromorphone). He denies fevers/chills/GUEVARA/neck stiffness. No cough/SOB. No nausea vomiting, abdominal pain, or diarrhea. No urine symptoms. Has R
ankle pain. 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 He has been compliant with HIV meds and follows with Dr. Ashley.
Past History
Additional Past Medical History:
HIV, well-controlled on Descovy, Maroviroc, Isentress, follows with Dr Ashley at [facility]
Congenital Hemophilia A
Chronic pain - narcotic dependent
hx substance abuse
Delayed gastric emptying
chronic constipation
Genital HPV
Additional Past Surgical History:
urethral stricture dilation
ulnar nerve transpostiionsynovectic arthroscopy 2010
Allergy History:
aspirin Allergy (Verified 08/03/24 13:10)
hemophilia
Medications Reviewed: Yes
Current Antibiotics:
Acyclovir
Ampicillin
ceftriaxone
Social History
Tobacco: Non-Smoker
Alcohol: None
Drug: Marijuana (vaping) and Other
Personal: Single
Family History
Family History: Not Pertinent
Review of Systems
Review of Systems
General: Negative Fever, Chills or Change in Appetite
HEENT: Negative Stiff Neck, Sinus Problems, Headache or Pharyngitis
Cardiovascular: Negative Chest Pain
Respiratory: Negative Dyspnea or Cough
Gasteroenterology: Negative Weight Loss or Nausea
Genital / Urological: Negative Dysuria or Flank Pain
Endocrine: Negative Weakness
Neurological: Negative Dizziness
All systems: All other systems were reviewed and were negative
Vital Signs
Temp Pulse Resp BP Pulse Ox
97.6 F 82 20 134/97 99
07/30/25 11:05 07/30/25 11:05 07/30/25 11:05 07/30/25 11:05 07/30/25 11:05
Physical Exam
Physical Exam
Constitutional: Comfortable and Non-toxic
Head: Other (No frontal or maxillary sinus tenderness)
Eyes: No Conjunctival Hemorrhage and Sclera Anicteric
Cardiovascular: Regular Rate and S1/S2
Pulmonary: Clear
Gastrointestinal: Soft, Non Tender, Non Distended and Normal Bowel Sounds
Genito-Urinary: Negative CVA Tenderness
Extremities: Negative Edema
Musculoskeletal: Other (Right ankle no effusion/erythema, + tenderness)
Wound: Other (Abrasions on forehead and BLE)
Neurological: AO x 3; Negative Meningeal Signs
Psychological: Other (Pressured speech, tangential thought, paranoia)
Lab / Diagnostic Study Results
07/30/25 05:08
07/30/25 05:08
Abs Immat Gran (auto) 0.0 10^3/uL (0-0.05) 07/30/25 05:08
Absolute Neuts (auto) 3.4 10^3/uL (1.4-6.5) 07/30/25 05:08
Absolute Lymphs (auto) 1.0 10^3/uL (1.2-3.4) L 07/30/25 05:08
Absolute Monos (auto) 0.5 10^3/uL (0.1-0.6) 07/30/25 05:08
Absolute Basos (auto) 0.0 10^3/uL (0-0.2) 07/30/25 05:08
Immature Gran % 0.2 % (0-0.5) 07/30/25 05:08
Neutrophils % 68.1 % (42.2-75.2) 07/30/25 05:08
Lymphocytes % 20.4 % (20.5-51.1) L 07/30/25 05:08
Monocytes % 10.7 % (1.7-9.3) H 07/30/25 05:08
Eosinophils % 0.2 % (0-6) 07/30/25 05:08
Basophils % 0.4 % (0-2) 07/30/25 05:08
Microbiology Results
07/30/25 R ankle XRAY: There are severe degenerative changes about the ankle but no evidence of an acute fracture.
07/30/[address]: Unremarkable unenhanced CT of the brain
Assessment / Plan
#HIV well-controlled
- VL <20, CD4 450 (37%) in 04/2025
- Continue TAF/FTC, maroviroc, and raltegravir
- Pt will call his mom to bring in his ART meds
# Change in mental status
- From ID standpoint, low suspicion for infectious encephalitis
No need for LP in my opinion.
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
- DC IV acyclovir/ampicillin/ceftriaxone
- Urine tox screen pending
- Monitor clinically.
Conditions present on admission:
HIV transmitted from transfusion, well-controlled on Descovy, Maroviroc, Isentress, follows with Dr Ashley at [facility]
Congenital Hemophilia A
Chronic pain - narcotic dependent
Hx substance abuse
Delayed gastric emptying
chronic constipation
Genital HPV
Care Review
Plan reviewed with: Physician (Drs. Sorin Hanks, Fifi, Clinton)
--- NOTE | 2025-07-30 14:45 | EDRN ---
infectious disease currently at the pts bedside
--- NOTE | 2025-07-30 14:53 | W.PN.UPDATE ---
Update Note
Progress Note Update
Based on discussion with IR, Infectious disease, heme/onc and Neurology would hold off LP for now, since patient has Hemophilia. It is not recommended to do a lumbar puncture without known status of specific factor levels
[2025-07-30 15:03] LABS: INR 1.12; PT 14.7 Sec (11.4-14.6)
[2025-07-30 15:16] LABS: Urine Character Slightly Cloudy (Clear)
[2025-07-30 15:31] LABS: Urine White Cell 0-2 /HPF (0-5)
--- NOTE | 2025-07-30 16:09 | EDRN ---
psychiatry currently at the pts bedside
[2025-07-30] MEDS: THIAMINE INJECTION 100 MG IV (16:37)
[2025-07-30] MEDS: NSS 1000 IV ×2 (16:40→23:59)
--- NOTE | 2025-07-30 18:45 | W.PN.UPDATE ---
Update Note
Progress Note Update
pt seen in afternoon. sleeping, but arousable. says he is fine, knows he is in [facility] ED, does not know why he is here or how he got here. I asked him about what he had told police, that he was taking part in a skit for [employer] with 100 other people. Pt insists this is true.
UDS positive for opioids and benzos and cannabinoids, all known.
Would continue to monitor to determine diagnsosis, give outpatient meds (including xanax at least 1 mg bid) Will follow with you
--- NOTE | 2025-07-30 18:53 | EDRN ---
this RN called the receiving IMU nurse and gave verbal report, this RN also tubed up paper work and nursing profile communication sheet
[2025-07-30] MEDS: VALTREX 1000 MG PO (21:31)
[2025-07-30] MEDS: XANAX 0.25 MG PO (21:31)
[2025-07-31] VITALS (11 sets, daily range): BP systolic 127–150; BP diastolic 71–101; PULSE 69–71; O2SAT 99
--- NOTE | 2025-07-31 03:50 | PTCARENOTE ---
Pt received overnight as admission to IMU. AAOx3. Answer all questions. States he was on his 'friends [employer] that has 10 floors with 500 people and it dispenses food automatically from the ocean.' Pt states that he has had fever before coming
in as well as when he came into the hospital. Admission oral temp 98.5. SB/SR/BBB/PQT on CM rate 44-78. POX RA 99%. Rest of VSS. Admits to pain to right ankle 08/13. +1 edema. Difficulty ambulated on right foot with limp. Pt refuses scd's even after
explaining purpose for them. Pt has wounds on back with bandaids in place but refuses assessment of them. Wounds documented as best of ability. Pt can become easily agitated. Flat affect. Received Xanax x 1 overnight. Voiding in bathroom without
difficulty. Refused bathing and oral care. Rest of assessment as documented. Oriented to room and surroundings. Call adkins remains within reach. Will continue to monitor.
[2025-07-31] MEDS: NSS 1000 IV (06:20)
--- NOTE | 2025-07-31 06:27 | PTCARENOTE ---
New IV bag hung this am. After bag spiked and infusing pt stated he does not want 'this water anymore.' Pt c/o puffiness to right hand. Right hand/fingers slightly swollen. IVF's stopped and this time and will pass on to day shift RN. Pt inquiring
when he can have breakfast. Pt informed 629, phone placed by pt's side and menu left at bedside and given extension. Call adkins remains at bedside. Will continue to monitor.
[2025-07-31] MEDS: VALTREX 1000 MG PO ×2 (07:49→19:49)
[2025-07-31] MEDS: THIAMINE INJECTION IV (07:49)
[2025-07-31] MEDS: DILAUDID 4 MG PO ×3 (07:49→20:26)
[2025-07-31] MEDS: MIRALAX 17 GRAMS PO ×3 (08:01→20:28)
[2025-07-31] MEDS: XANAX 0.25 MG PO (09:43)
--- NOTE | 2025-07-31 09:58 | W.PN.ID1 ---
Date of Service
Date of Service: July 31, 2025
Today's Communication
Continue HIV meds.
ID will sign off. Call PRN
Assessment / Plan
#HIV well-controlled
- VL <20, CD4 450 (37%) in 04/2025
- Continue TAF/FTC, maroviroc, and raltegravir (own meds)
# Change in mental status/psychosis
- From ID standpoint, low suspicion for infectious encephalitis
No need for LP in my opinion. 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
-Urine tox screen: benzo, opiate, marijuana (pt takes these substances as prescribed)
ID will sign off. Call prn.
Conditions present on admission:
HIV transmitted from transfusion, well-controlled on Descovy, Maroviroc, Isentress, follows with Dr Ashley at [facility]
Congenital Hemophilia A
Chronic pain - narcotic dependent
Hx substance abuse
Delayed gastric emptying
chronic constipation
Genital HPV
Chief Complaint
-: Other (Psychosis)
Subjective / Review of Systems
Pt feels well. He cannot recall events that precipitated the hallucination, behavioral change. He has a cut on his head but don't remember hitting his head.
Vital Signs / Physical Exam
Vital Signs
Vital Signs
Temp Pulse Resp BP Pulse Ox
98.5 F 61 19 137/84 100
07/31/25 07:57 07/31/25 07:00 07/31/25 07:00 07/31/25 06:00 07/31/25 07:00
Physical Exam
Constitutional: No Acute Distress, Comfortable and Non-toxic
Eyes: No Conjunctival Hemorrhage and Sclera Anicteric
Oropharyngeal: Negative Thrush
Cardiovascular: Regular Rate and S1/S2
Pulmonary: Clear
Gastrointestinal: Soft, Non Distended and Normal Bowel Sounds
Genito-Urinary: Negative CVA Tenderness
Extremities: Negative Edema
Neurological: AO x 3 (person, date, place)
Objective Data
Lab Data
Lab Results
07/30/25 05:08
PT 14.7 Sec (11.4-14.6) H 07/30/25 14:32
INR 1.12 07/30/25 14:32
Estimated Creat Clear 112 ml/min 07/30/25 05:08
Most recent labs reviewed.
Micro Results:
07/30/25 14:32 Blood Parasites Smear - Final
Blood/Venous
07/30/25 14:32 MRSA Screen - Pending
Nose
07/30/25 14:31 Blood Culture - Pending
Blood/Venous
07/30/25 R ankle XRAY: There are severe degenerative changes about the ankle but no evidence of an acute fracture.
07/30/[address]: Unremarkable unenhanced CT of the brain
Care Review
Plan reviewed with: Physician (Dr. Chapo Hanks)
--- NOTE | 2025-07-31 10:08 | W.PN.NEURO.1 ---
Today's Communication / Plan
-
.
Subjective/Objective
Subjective Data
Date of Service: July 31, 2025.
Neurology follow-up note
HPI: This is a 50-year-old man who presented to [facility] on 07/30/2025 with psychosis.
Mr. Delacruz cannot recall the exact events leading to the hospitalization.. There is a 'chunk of missing time' in his memory, with his last recollection being at home watching TV before finding himself in the middle of the street talking to a police
officer.
The patient complains of difficulty sleeping due to not receiving his usual sleep medication. He reports ankle pain, which he attributes to his hemophilia.
Mr. Delacruz describes chronic tingling and numbness in his hands, fingertips, and toes.
ER VS: 140/95, 84, afebrile
EKG: NSR, QTcB Int : 515 ms
PDMP:Hydromorphone 4 Mg 120 tabs filled in on 07/25/2025, Alprazolam 2 Mg 70 tabs filled in on 07/12/2025
Labs: Normal glucose, sodium, creatinine, free T4, WBCs, absolute lymphocyte count�1.0.
Urine tox�positive for opioids, benzodiazepines and THC. Alcohol�negative
CT head wo contrast-unremarkable
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
PSH: Left ulnar nerve decompression at the elbow, umbilical and inguinal hernia repair,
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 Does not drive.
FH: Not contributory to current presentation
All: ASA
ROS: General: Positive for insomnia, fatigue.
HEENT: Positive for tongue pain. Negative for double vision.
Musculoskeletal: Positive for ankle pain.
Neurological: Positive for chronic paresthesia in hands, fingertips, and toes. Negative for seizures.
Psychiatric: Positive for amnesia
General: Well developed. In no acute distress.
Cardio: Regular rate and rhythm without murmur. Extremities are without cyanosis or edema.
Neuro:
Mental Status: Alert, oriented to person, 'August 06, 2025'. Able to do serial sevens. No aphasia or hemineglect.
Cranial Nerves: Pupils are equally round and reactive to light. EOMs full. Visual miller full to confrontation. No ptosis. No nystagmus. V1-V3 intact to light touch and pinprick bilaterally, symmetric. Face symmetric. Normal hearing AU. The
palate elevated well. SCMs and traps 5/5. Tongue midline. No dysarthria.
Motor: Normal bulk and tone. No pronator or arm drift. Strength 5/5 throughout. No clonus.
Reflexes: 2+ throughout the upper extremities and knees. 2/2 in AJs. Plantar responses flexor bilaterally.
Sensory: Normal vibration at the toes
Coordination: No dysmetria or tremor.
Gait: deferred
Left tongue erosion without ecchymosis, right temporal and forehead small laceration.
Assessment and Plan:
I. Postictal psychosis?
II. Hypertrophic osteoarthropathy
III. C6-7 central canal stenosis
-Fall and seizure precautions
-Obtain routine EEG (on as outpatient)
-Brain MRI without kim
-Please check CK, Mg, vitamin B12.
-Avoid medications known to lower seizure threshold
I personally reviewed all radiology and labs along with past medical records pertinent to current medical problems. Total time spent in patient care is 37 minutes.
Thank you for allowing us to participate in the care of this patient. We will continue to follow. Please do not hesitate to contact us with any questions or concerns.
Objective Data
Vital Signs
Temp Pulse Resp BP Pulse Ox
36.9 C 66 22 127/71 99
07/31/25 07:57 07/31/25 10:00 07/31/25 10:00 07/31/25 10:00 07/31/25 10:00
Lab Results
07/30/25 05:08
PT 14.7 Sec (11.4-14.6) H 07/30/25 14:32
INR 1.12 07/30/25 14:32
Sodium 137 mmol/L (135-145) 07/30/25 05:08
Potassium 3.6 mmol/L (3.5-5.1) 07/30/25 05:08
BUN 14 mg/dl (9-20) 07/30/25 05:08
Glucose 87 mg/dl (70-99) 07/30/25 05:08
Calcium 9.0 mg/dl (8.4-10.2) 07/30/25 05:08
Ur Buprenorphine Negative (Negative) 07/30/25 14:32
Patient Allergies
aspirin Allergy (Verified 08/03/24 13:10)
hemophilia
Vital Signs and Labs
-
Vital Signs and Labs:
Vital Signs
Temp Pulse Resp BP Pulse Ox
36.9 C 66 22 127/71 99
07/31/25 07:57 07/31/25 10:00 07/31/25 10:00 07/31/25 10:00 07/31/25 10:00
Lab Results
07/30/25 05:08
PT 14.7 Sec (11.4-14.6) H 07/30/25 14:32
INR 1.12 07/30/25 14:32
Sodium 137 mmol/L (135-145) 07/30/25 05:08
Potassium 3.6 mmol/L (3.5-5.1) 07/30/25 05:08
BUN 14 mg/dl (9-20) 07/30/25 05:08
Glucose 87 mg/dl (70-99) 07/30/25 05:08
Calcium 9.0 mg/dl (8.4-10.2) 07/30/25 05:08
Ur Buprenorphine Negative (Negative) 07/30/25 14:32
Medications
-
Medications:
Generic Name Dose Route Start Last Admin
Trade Name Freq PRN Reason Stop Dose Admin
Alprazolam 0.25 mg 07/30/25 18:34 07/31/25 09:43
Alprazolam 0.25 Mg Tablet PO 08/27/25 18:33 0.25 mg
Q8HPRN PRN Administration
Agitation/anxiety
Hydromorphone HCl 4 mg 07/31/25 07:24 07/31/25 07:49
Hydromorphone 4 Mg Tablet PO 08/14/25 07:23 4 mg
Q6HPRN PRN Administration
severe pains
Sodium Chloride 1,000 mls @ 150 mls/hr 07/30/25 14:02 07/31/25 06:20
Nss IV 1,000 mls
.Q6H40M HAO Administration
Imiquimod 5 % Cream 0 applic 07/31/25 08:00
In Packet TOPICAL 08/28/25 07:59
DAILY HAO
Non-Formulary Medication 300 mg 07/31/25 08:00
Maraviroc PO 08/28/25 07:59
BID HAO
Non-Formulary Medication 1 tablet 07/31/25 08:00
Emtricitabine-Tenofovir Alafen [Descovy] PO 08/28/25 07:59
DAILY HAO
Ondansetron HCl 4 mg 07/31/25 08:10
Ondansetron 4 Mg/2 Ml Vial IV 08/28/25 08:09
Q6HPRN PRN
NAUSEA/VOMITING
Pantoprazole Sodium 40 mg 07/31/25 08:00 07/31/25 07:56
Pantoprazole 40 Mg Delayed Release Tablet PO 08/28/25 07:59 Not Given
DAILY HAO
Polyethylene Glycol 17 grams 07/31/25 07:41 07/31/25 08:01
Polyethylene Glycol Powder 17 Grams Packet PO 08/28/25 07:40 17 grams
DAILYPRN PRN Administration
constipation
Raltegravir 400 mg 07/31/25 08:00
Raltegravir Potassium 400 Mg Tablet PO 08/28/25 07:59
BID HAO
Sodium Chloride 0 flush 07/30/25 14:00
Sodium Chloride 0.9% (Flush) Syringe IV 08/27/25 13:59
PER PROTOCOL HAO
Tamsulosin HCl 0.4 mg 07/31/25 08:00 07/31/25 07:56
Tamsulosin 0.4 Mg Capsule PO 08/28/25 07:59 Not Given
DAILY HAO
Thiamine HCl 100 mg 07/30/25 14:02 07/31/25 07:49
Thiamine (100 Mg/Ml) 2 Ml Vial IV 08/27/25 14:01 Not Given
DAILY HAO
Valacyclovir HCl 1,000 mg 07/30/25 20:00 07/31/25 07:49
Valacyclovir Hcl 500 Mg Tablet PO 08/09/25 19:59 1,000 mg
BID HAO Administration
Home Medications
-
Home Medications
esomeprazole magnesium 40 mg capsule,delayed release (Nexium) 40 mg PO DAILY Gastrointestinal issue 09/30/19
raltegravir 400 mg tablet (Isentress) 400 mg PO BID Infection 09/30/19
alprazolam 2 mg tablet (Xanax) 2 mg PO BIDPRN PRN anxiety 07/30/25
emtricitabine 200 mg-tenofovir alafenamide fumarate 25 mg tablet (Descovy) 1 tab PO DAILY 07/30/25
hydromorphone 4 mg tablet 4 mg PO Q6HPRN PRN severe pains 07/30/25
imiquimod 5 % topical cream packet 1 applic topical DAILY 07/30/25
maraviroc 300 mg tablet 300 mg PO BID 07/30/25
ondansetron HCl 8 mg tablet 8 mg PO [id number] PRN nausea 07/30/25
polyethylene glycol 3350 17 gram oral powder packet (Miralax) 17 g PO DAILYPRN PRN constipation 07/30/25
tamsulosin 0.4 mg capsule (Flomax) 0.4 mg PO DAILY 07/30/25
valacyclovir 1 gram tablet (Valtrex) 1,000 mg PO BID 07/30/25
[2025-07-31] MEDS: NSS IV (10:38)
--- NOTE | 2025-07-31 10:38 | PTCARENOTE ---
Patient refusing IV fluids because he 'does not need them'. Dr. Alonzo made aware.
--- NOTE | 2025-07-31 12:42 | W.PN.HOSP.TC ---
Addendum entered and electronically signed by Clark Hanks MD 07/31/25 14:28:
TME VS Acute Delirium
-MRI BRain
-B12 Folate
-RPR
-Thiamine IV
-EEG
-Neuro following
-Per ID: CD4 and VL per ID, not concerning for oportunistic infection
--No indication for LP at this time
-Avoid agents that lower threshold
HIV, without aids defining
-Continue HAART
Hemophilia A
-Continue Advate, pharm to dose
Long Qt Syndrome
-Avoid agents the prolong Qt syndrome
Original Note:
Today's Communication/Plan
-
MRI brain
Follow syphilis serology, Lyme serology, CK levels, CD4 levels
Follow psych recommendations
Resume home medications
Assessment / Plan
Assessment / Plan
Impression
Patient is a 50-year-old male with history of HIV presenting with 2-day history of hallucinations agitated/aggressive behavior, admitted with working diagnosis of acute delirium versus acute TME versus acute psychosis.
Assessment/plan
#ACute Delirium vs TME vs New onset psychosis
Patient has past medical history of HIV, well-controlled with CD4 count of 37% and viral load less than 20
ID consult appreciated-low suspicion of infectious encephalitis, no need of LP
Neurology consult appreciated-postictal psychosis versus hypertrophic osteoarthropathy versus C6-7 central canal [id number] brain MRI, check CK and magnesium levels, avoid medications with low seizure threshold
Neurology recommends EEG on outpatient
Patient does not have a past medical history of any psychiatric issues but there is strong suspicion of underlying psychiatric issues based on the presentation and no organic pathology
Urine drug screen was positive for opiates, benzos and marijuana which the patient takes as prescribed
Brain MRI
Follow Lyme serology and syphilis serology along with CK levels
EEG on outpatient basis
#HIV
Well-controlled based on the CD4 levels and viral load
Continue home medications
#Hemophilia A
Follow Factor VIII levels
Resume home medications
Pain medications as needed for chronic pain
#History of long QT syndrome
#History of substance use
DVT prophylaxis-sequential compression devices
CODE STATUS-DNR
Anticipated Discharge: 24 - 48 hours
Subjective/Interval History
-
Date of Service: July 31, 2025
Patient seen and examined at bedside
He has no recollection of how he got to the hospital, he does not remember the police or EMS taking him to the hospital
Describes pain in his ankles related to hemophilia
Seems very agitated and wants to have Xanax to fall asleep
Chronic tingling and numbness of his hands and toes
Objective Data
-
Labs:
Laboratory Results
07/31/25
09:50
Sodium Pending
Potassium Pending
Chloride Pending
Carbon Dioxide Pending
BUN Pending
Creatinine Pending
Glucose Pending
Calcium Pending
Vital Signs:
Vital Signs
Temp Pulse Resp BP Pulse Ox
98.5 F 65 18 127/71 100
07/31/25 07:57 07/31/25 11:45 07/31/25 11:45 07/31/25 10:00 07/31/25 11:45
I&O
07/30/25 07/31/25 08/01/25
06:59 06:59 06:59
Intake Total 1650 / 1650
Output Total 400 / 400
Balance 1650 / 1650 -400 / -400
Review of Systems
-
History Source: Patient
Constitutional: Reports Sleep Disturbance
EENT: Reports Other (Tongue pain)
Abdomen/GI: Reports Nausea
Musculoskeletal: Reports Other (Chronic tingling of his hands toes and fingertips)
Psych: Reports Anxious
Physical Exam
-
General: Well Developed, Well Nourished and Conversant (Fast-paced speech, moves his arms and legs while talking)
HEENT: Other (Left tongue erosion, bruise cherelle on forehead)
Respiratory: Clear to Auscultation; Negative Wheezes, Rales or Rhonchi
Cardiac: Regular Rhythm and S1/S2
GI: Soft, Nontender and Normal Bowel Sounds
Musculoskeletal: No Clubbing, No Cyanosis, No Edema and Other (Bruise foss on arms legs and forehead)
Skin: Warm and Other (Bruise foss on arms legs and forehead)
Neuro: Awake, Oriented (Oriented to name and place) and Nonfocal/Grossly Intact
Psych: Calm
--- NOTE | 2025-07-31 13:13 | PTOTSP ---
ST Acute Care Evaluation
Pt currently presents with clinical signs of a functional oropharyngeal swallow. No overt s/s of penetration or aspiration noted at bedside. Cannot rule out silent aspiration at bedside. Pt with known hiatal hernia and delayed gastric emptying which
he manages independently with modifying his food choices. No skilled dysphagia services indicated at this time.
Based on a brief screening, pt's speech, receptive/expressive language, and orientation are within functional limits. Pt exhibits some mild agitation, lability, distractibility, reduced insight, reduced judgment, and memory loss that can be
attributed to his acute illness/chief complaint for which he is currently being worked-up by the primary medical team.
Recommendations:
- Continue with regular solids, thin liquids, meds as tolerated with general aspiration precautions.
- SHEEP SORTER to f/u re: results of MRI to determine if further more comprehensive cognitive linguistic testing is deemed warranted.
--- NOTE | 2025-07-31 13:26 | W.PN.UPDATE ---
Update Note
Progress Note Update
Patient seen by me on 07/31/2025 from 1:02pm-1:23pm
Chart reviewed. Last seen by psych on 07/30 for acute mental status change with hallucinations. At this time, patient is sitting in bed and states he has no recollections of any events that led to his admission. He would like to know the underlying
cause of why this hospitalization occurred. He denies any current confusion or hallucinations. He is fully oriented and logical. He denies a mental health history. He states Xanax is prescribed by his ID specialist and he typically 2mg twice a day,
often at bedtime to help him sleep. His mom is present and states patient is currently at baseline. She does not think he needs any mental health treatment.
MSE- good eye contact. fluent speech. logical and goal directed. Denies hallucinations. No apparent delusions. fully oriented. Denies SI/HI.
A/P- 50 yo male with acutely altered mental status of unclear etiology, now clearing with no evidence of psychosis. Will restart Xanax at 2mg HS and 1mg daily PRN anxiety. Discontinue Xanax 0.25mg q8 PRN. Continue medical work up and monitoring of
symptoms.
[2025-07-31] MEDS: NON-FORMULARY ITEM 1 MG PO (14:21)
[2025-07-31] MEDS: ISENTRESS 400 MG PO ×2 (14:21→20:21)
[2025-07-31] MEDS: NON-FORMULARY ITEM 1 TABLET PO (14:21)
--- NOTE | 2025-07-31 17:14 | PTCARENOTE ---
Multiple TigerTexts sent to Dr. Hanks and Dr. Alonzo throughout the day asking them to order Advate (hemophilia medication) if appropriate as patient takes this daily. Medication in pharmacy since this AM. Patient stated that he wants to leave AMA
due to his Advate not being given to him yet. Dr. Sanchez made aware as he is the solutions specialist hospitalist. Dr. Sanchez ordered medication.
[2025-07-31 17:30] LABS: Blood Urea Nitrogen 12 mg/dl (9-20); Calcium 8.7 mg/dl (8.4-10.2); Carbon Dioxide 24 mmol/L (22-30); Chloride 107 mmol/L (98-107); Estimated Creatinine Clearance > 125 ml/min; Glucose 124 mg/dl (70-99); Magnesium 1.7 mg/dl (1.6-2.3); Potassium 3.5 mmol/L (3.5-5.1); Sodium 137 mmol/L (135-145); Uric Acid 7.3 mg/dl (3.5-8.5); eGFR > 60.00
[2025-07-31 17:32] LABS: C-Reactive Protein 21.70 mg/L (0.0-10.00)
[2025-07-31] MEDS: NON-FORMULARY ITEM 3070 UNITS IV (17:53)
--- NOTE | 2025-07-31 18:06 | PTCARENOTE ---
Patient AOx3. Easily agitated. Bed alarm on and audible. On RA with SpO2 greater than 92%. NSR-Sinus tan with BBB and prolonged QT. Tolerating diet. Takes miralax TID with meals. Assist x1 when OOB. Call adkins within reach, bed in lowest position,
and bed of wheels locked.
[2025-07-31 18:21] LABS: Vitamin B12 210 pg/ml (239-931)
[2025-07-31] MEDS: NON-FORMULARY ITEM 300 MG PO (19:50)
[2025-07-31] MEDS: XANAX 2 MG PO (22:20)
[2025-08-01] VITALS: BP 158/102
[2025-08-01] MEDS: MIRALAX 17 GRAMS PO ×2 (00:08→09:48)
--- NOTE | 2025-08-01 00:10 | PTCARENOTE ---
Pt c/o feeling uncomfortable d/t constipation. Did receive Miralax at 2029 with no result per pt. Requesting additional dose Miralax. Hephorace DELGADILLO TT'd and made aware. Hephorace ROTARY SLICING MACHINE OPERATOR up to see pt and order entered for extra dose Miralax. Pt received
med as ordered and within 5 mins pt stated thta all his stomach problems were gone and felt much better. Slept well throughout shift. Call adkins remains within reach. Will continue to monitor.
--- NOTE | 2025-08-01 00:15 | W.PN.UPDATE ---
Update Note
Progress Note Update
patient requesting for more Miralax, last dose received at 2030. Patient states he spilled the last dose and he want another dose as he feels constipated and suffers from fissures and constipations. Addressed the side effects of narcotics, states
understanding, no other complaints, patient is not in any discomfort at this moment.
[2025-08-01 02:00] VITALS: BP 143/98
[2025-08-01 04:00] VITALS: BP 138/93
[2025-08-01] MEDS: DILAUDID 4 MG PO ×2 (07:35→14:12)
--- NOTE | 2025-08-01 08:05 | W.PN.NEURO.1 ---
Today's Communication / Plan
-
.
Subjective/Objective
Subjective Data
Date of Service: August 01, 2025
Neurology follow-up note
Mr. Delacruz experienced sleep disruption overnight due to monitoring equipment alarms requiring frequent staff interventions. He continues to experience tongue pain. No reports of headaches, change in vision or strength
Brain MRI�pending.
Vitamin B12�210, CK�203,
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
PSH: Left ulnar nerve decompression at the elbow, umbilical and inguinal hernia repair,
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 Does not drive.
FH: Not contributory to current presentation
All: ASA
ROS: General: Positive for insomnia, fatigue.
HEENT: Positive for tongue pain. Negative for double vision.
Musculoskeletal: Positive for ankle pain.
Neurological: Positive for chronic paresthesia in hands, fingertips, and toes. Negative for seizures.
Psychiatric: Positive for transient amnesia
General: Well developed. In no acute distress.
Cardio: Regular rate and rhythm without murmur. Extremities are without cyanosis or edema.
Neuro:
Mental Status: Alert, oriented to person, August 01, 2024. Normal attention and comprehension. Able to do serial sevens. No aphasia or hemineglect.
Cranial Nerves: Pupils are equally round and reactive to light. EOMs full. Visual miller full to confrontation. No ptosis. No nystagmus. V1-V3 intact to light touch and pinprick bilaterally, symmetric. Face symmetric. Normal hearing AU. The
palate elevated well. SCMs and traps 5/5. Tongue midline. No dysarthria.
Motor: Normal bulk and tone. No pronator or arm drift. Strength 5/5 throughout. No clonus.
Reflexes: 2+ throughout the upper extremities and knees. 2/2 in AJs. Plantar responses flexor bilaterally.
Sensory: Normal vibration at the toes
Coordination: No dysmetria or tremor.
Gait: deferred
Left tongue erosion without ecchymosis, right temporal and forehead small laceration.
Assessment and Plan:
I. Probable symptomatic seizure
II. KIM
III. C6-7 central canal stenosis
-Fall and seizure precautions
-Obtain routine EEG (can be done as outpatient)
-Brain MRI without kim (can be done as outpatient
-No driving
-Avoid medications known to lower seizure threshold
-Outpatient neurology follow-up
I personally reviewed all radiology and labs along with past medical records pertinent to current medical problems. Total time spent in patient care is 35 minutes.
Thank you for allowing us to participate in the care of this patient. We will continue to follow. Please do not hesitate to contact us with any questions or concerns.
Objective Data
Vital Signs
Temp Pulse Resp BP Pulse Ox
36.7 C 87 23 138/93 98
08/01/25 03:00 08/01/25 06:00 08/01/25 06:00 08/01/25 04:00 08/01/25 05:45
PT 14.7 Sec (11.4-14.6) H 07/30/25 14:32
INR 1.12 07/30/25 14:32
Sodium 137 mmol/L (135-145) 07/31/25 16:48
Potassium 3.5 mmol/L (3.5-5.1) 07/31/25 16:48
BUN 12 mg/dl (9-20) 07/31/25 16:48
Glucose 124 mg/dl (70-99) H 07/31/25 16:48
Calcium 8.7 mg/dl (8.4-10.2) 07/31/25 16:48
Vitamin B12 210 pg/ml (239-931) L 07/31/25 16:48
Ur Buprenorphine Negative (Negative) 07/30/25 14:32
Patient Allergies
aspirin Allergy (Verified 08/03/24 13:10)
hemophilia
Vital Signs and Labs
-
Vital Signs and Labs:
Vital Signs
Temp Pulse Resp BP Pulse Ox
36.8 C 57 18 138/93 100
08/01/25 07:20 08/01/25 09:30 08/01/25 09:30 08/01/25 04:00 08/01/25 09:30
PT 14.7 Sec (11.4-14.6) H 07/30/25 14:32
INR 1.12 07/30/25 14:32
Sodium 137 mmol/L (135-145) 07/31/25 16:48
Potassium 3.5 mmol/L (3.5-5.1) 07/31/25 16:48
BUN 12 mg/dl (9-20) 07/31/25 16:48
Glucose 124 mg/dl (70-99) H 07/31/25 16:48
Calcium 8.7 mg/dl (8.4-10.2) 07/31/25 16:48
Vitamin B12 210 pg/ml (239-931) L 07/31/25 16:48
Ur Buprenorphine Negative (Negative) 07/30/25 14:32
Medications
-
Medications:
Generic Name Dose Route Start Last Admin
Trade Name Freq PRN Reason Stop Dose Admin
Alprazolam 1 mg 07/31/25 13:25
Alprazolam 1 Mg Tablet PO 08/28/25 13:24
DAILYPRN PRN
anxiety
Hydromorphone HCl 4 mg 07/31/25 07:24 08/01/25 07:35
Hydromorphone 4 Mg Tablet PO 08/14/25 07:23 4 mg
Q6HPRN PRN Administration
severe pains
Imiquimod 5 % Cream 0 applic 07/31/25 08:00 07/31/25 14:41
In Packet TOPICAL 08/28/25 07:59 Not Given
DAILY HAO
Maraviroc 300 Mg 1 0 mg 07/31/25 15:00 08/01/25 09:43
Tablet Twice Daily PO 08/28/25 14:59 300 mg
BID HAO Administration
Emtricitabine- 0 tablet 07/31/25 15:00 08/01/25 09:43
Tenofovir Alafen [ PO 08/28/25 14:59 1 tablet
Descovy] 200-25 Mg DAILY HAO Administration
Tablet 1 Tablet
Daily
Advate 3,070 Units 0 units 07/31/25 17:15 08/01/25 09:49
Iv Push Daily IV 08/28/25 17:14 3,070 units
DAILY HAO Administration
Ondansetron HCl 4 mg 07/31/25 08:10
Ondansetron 4 Mg/2 Ml Vial IV 08/28/25 08:09
Q6HPRN PRN
NAUSEA/VOMITING
Pantoprazole Sodium 40 mg 07/31/25 08:00 08/01/25 08:20
Pantoprazole 40 Mg Delayed Release Tablet PO 08/28/25 07:59 Not Given
DAILY HAO
Polyethylene Glycol 17 grams 07/31/25 14:02 08/01/25 09:48
Polyethylene Glycol Powder 17 Grams Packet PO 08/28/25 15:59 17 grams
TID PRN Administration
constipation
Raltegravir 400 mg 07/31/25 08:00 08/01/25 09:43
Raltegravir Potassium 400 Mg Tablet PO 08/28/25 07:59 400 mg
BID HAO Administration
Sodium Chloride 0 flush 07/30/25 14:00
Sodium Chloride 0.9% (Flush) Syringe IV 08/27/25 13:59
PER PROTOCOL HAO
Tamsulosin HCl 0.4 mg 07/31/25 08:00 08/01/25 08:20
Tamsulosin 0.4 Mg Capsule PO 08/28/25 07:59 Not Given
DAILY HAO
Thiamine HCl 100 mg 07/30/25 14:02 08/01/25 08:21
Thiamine (100 Mg/Ml) 2 Ml Vial IV 08/27/25 14:01 Not Given
DAILY HAO
Valacyclovir HCl 1,000 mg 07/30/25 20:00 08/01/25 09:42
Valacyclovir Hcl 500 Mg Tablet PO 08/09/25 19:59 1,000 mg
BID HAO Administration
Home Medications
-
Home Medications
esomeprazole magnesium 40 mg capsule,delayed release (Nexium) 40 mg PO BID Gastrointestinal issue 09/30/19
raltegravir 400 mg tablet (Isentress) 400 mg PO BID Infection 09/30/19
alprazolam 2 mg tablet (Xanax) 2 mg PO BIDPRN PRN anxiety 07/30/25
emtricitabine 200 mg-tenofovir alafenamide fumarate 25 mg tablet (Descovy) 1 tab PO DAILY 07/30/25
hydromorphone 4 mg tablet 4 mg PO Q6HPRN PRN severe pains 07/30/25
imiquimod 5 % topical cream packet 1 applic topical DAILY 07/30/25
maraviroc 300 mg tablet 300 mg PO BID 07/30/25
ondansetron HCl 8 mg tablet 8 mg PO [id number] PRN nausea 07/30/25
polyethylene glycol 3350 17 gram oral powder packet (Miralax) 17 g PO AC 07/30/25
tamsulosin 0.4 mg capsule (Flomax) 0.4 mg PO DAILY 07/30/25
valacyclovir 1 gram tablet (Valtrex) 1,000 mg PO BID 07/30/25
antihemophilic factor (recomb) 2,000 (+/-) unit intravenous solution 3,000 unit IV DAILY HEMOPHILIA/PROPHYLAXIS 07/31/25
[2025-08-01] MEDS: THIAMINE INJECTION IV (08:21)
--- NOTE | 2025-08-01 08:36 | PTCARENOTE ---
Patient refusing AM labs. Patient stated 'you are not putting a needle into me'. Dr. Alonzo made aware.
[2025-08-01] MEDS: VALTREX 1000 MG PO (09:42)
[2025-08-01] MEDS: NON-FORMULARY ITEM 1 TABLET PO (09:43)
[2025-08-01] MEDS: NON-FORMULARY ITEM 300 MG PO (09:43)
[2025-08-01] MEDS: ISENTRESS 400 MG PO (09:43)
[2025-08-01] MEDS: NON-FORMULARY ITEM 3070 UNITS IV (09:49)
--- NOTE | 2025-08-01 10:12 | W.PN.HOSP.TC ---
Addendum entered and electronically signed by Clark Hanks MD 08/01/25 12:43:
dc home
outpatient neuro follow up
no drivign
per psych dc home with day worth of xanax 2mg HS
Original Note:
Today's Communication/Plan
-
Follow-up brain MRI
Discharged with 10-day supply of Xanax
Assessment / Plan
Assessment / Plan
Impression
Patient is a 50-year-old male with history of HIV presenting with 2-day history of hallucinations agitated/aggressive behavior, admitted with working diagnosis of acute delirium versus acute TME versus acute psychosis.
Assessment/plan
#ACute Delirium vs TME vs New onset psychosis
Patient has past medical history of HIV, well-controlled with CD4 count of 37% and viral load less than 20
ID consult appreciated-low suspicion of infectious encephalitis, no need of LP
Neurology consult appreciated-postictal psychosis versus hypertrophic osteoarthropathy versus C6-7 central canal stenosis-CK levels 203 and magnesium 1.7, avoid medications with low seizure threshold
Brain MRI-Pending
Neurology recommends EEG on outpatient
Patient does not have a past medical history of any psychiatric issues but there is strong suspicion of underlying psychiatric issues based on the presentation and no organic pathology
Urine drug screen was positive for opiates, benzos and marijuana which the patient takes as prescribed
Patient tested negative for syphilis, Lyme serology pending
Psych consult appreciated-patient fully oriented, logical, suggest benzo withdrawal is possible explanation -back to baseline with no evidence of psychosis
Psych okay with discharge with 10-day supply of Xanax to bridge him until his next appointment with his ID physician
#HIV
Well-controlled based on the CD4 levels and viral load
Continue home medications
#Hemophilia A
Follow Factor VIII levels
Resume home medications
Pain medications as needed for chronic pain
#History of long QT syndrome
#History of substance use
DVT prophylaxis-sequential compression devices
CODE STATUS-DNR
Anticipated Discharge: Today
Subjective/Interval History
-
Date of Service: August 01, 2025
Patient seen and examined at bedside
Thought process appears logical, denies any hallucinations or delusions
Alert and oriented
Objective Data
-
Labs:
Laboratory Results
08/01/25
07:15
WBC Pending
Hgb Pending
Hct Pending
Plt Count Pending
PT Pending
INR Pending
Sodium Pending
Potassium Pending
Chloride Pending
Carbon Dioxide Pending
BUN Pending
Creatinine Pending
Glucose Pending
Calcium Pending
Vital Signs:
Vital Signs
Temp Pulse Resp BP Pulse Ox
98.2 F 57 18 138/93 100
08/01/25 07:20 08/01/25 09:30 08/01/25 09:30 08/01/25 04:00 08/01/25 09:30
I&O
07/31/25 08/01/25 08/02/25
06:59 06:59 06:59
Intake Total 1650 / 1650 900 / 900
Output Total 400 / 400
Balance 1650 / 1650 500 / 500
Review of Systems
-
All other systems: Reviewed and negative
Physical Exam
-
General: Well Developed, No Apparent Distress and Comfortable
HEENT: Normocephalic, Atraumatic and Other (Left tongue erosion, bruise foss on forehead)
Respiratory: Clear to Auscultation; Negative Wheezes, Rales or Rhonchi
Cardiac: Regular Rhythm and S1/S2
GI: Soft, Nontender and Normal Bowel Sounds
Musculoskeletal: No Clubbing, No Cyanosis and No Edema
Skin: Warm and Dry
Neuro: Awake and AO x 3
Psych: Calm
--- NOTE | 2025-08-01 10:29 | W.PN.UPDATE ---
Update Note
Progress Note Update
Patient seen by me on 08/01/2025 from 10:15am-10:25am
Chart reviewed. Last seen by psychiatry on 07/31 for acute mental status change with hallucinations. At this time, patient is sitting in bed fully oriented and logical and focused on identifying the etiology of his mental status changes that led to
admission. We discussed his Xanax prescription by his ID specialist and the risk for potential withdrawal seizure/altered mental status with its abrupt discontinuation. He states that he had actually ran out of Xanax since his provider was trying
to get him off this secondary to concern of its combination with pain medication. He states he will see that doctor next week for follow up and we discussed giving him a limited Xanax supply to bridge him until that appointment. He is agreeable with
this plan.
MSE- good eye contact. fluent speech. logical and goal directed. Denies hallucinations. No apparent delusions. fully oriented. Denies SI/HI.
A/P- 50 yo male with acutely altered mental status of unclear etiology, benzo withdrawal seizure is one possible explanation, now at baseline with no evidence of psychosis. Recommend discharge with 10 day supply of Xanax 2mg HS to bridge him until
next appointment with ID physician to discuss watermelon inspector medication management plan between benzo and pain medication.
[2025-08-01] MEDS: XANAX 2 MG PO (10:48)
[2025-08-01 10:50] VITALS: BP 138/103
--- NOTE | 2025-08-01 15:43 | PTCARENOTE ---
Patient AOx3. Easily agitated. Bed alarm on and audible. On RA with SpO2 greater than 92%. NSR-Sinus tan when sleeping with BBB and prolonged QT. Tolerating diet. Takes miralax TID with meals. B/L ankle pain. PRN pain medication given per JAN.
Assist x1 when OOB. Call adkins within reach, bed in lowest position, and bed of wheels locked.
--- NOTE | 2025-08-01 15:44 | PTCARENOTE ---
Patient has d/c order. Spoke to Edgar in security, Maria Esther in crisis, Dr. Hanks (hospitalist), Dr. Briones (psychiatrist), and Sameera Brian from and everyone is in agreement that patient is cleared to leave medically from the hospital.
[2025-08-01 16:41] VITALS: BP 135/106
--- NOTE | 2025-08-01 17:06 | PTCARENOTE ---
D/C paperwork discussed with patient. Home medications give to patient. Left via wheelchair with belongings. IV removed
[2025-08-01 17:27] LABS: CD4 % of Cells Analyzed 33 % (32-64); CD4 Absolute Count 388 cells/uL (430-1800)
--- NOTE | 2025-08-02 09:09 | W.DCSUMMARY ---
Discharge Summary
Discharge Data
Date of Admission: 07/30/25
Date of Discharge: 08/02/25
-
Pending Results: No
Hospital Course
Discharging Physician :
Clark Hanks
Disposition :
Home
Primary care physician :
None, ID physician;Dr. Ashley
Principal Discharge diagnosis :
Acute Delirium due to possible benzodiazepine withdrawl/TME
Chronic Discharge diagnosis :
Chronic pain syndrome (hydromorphone, Xanax, marijuana)
History of HIV well-controlled with a CD4 count of 37% and a viral load of less than 20
Hemophilia, on Advate
Hospital Course :
Patient is a 50-year-old male was admitted with acute change in mental status associated with hallucinations on 07/31.Patient did not remember the events leading to the hospitalization.
A CT of head was done that was negative for any acute changes, an MRI was done which was also negative, neurology consulted who suspected that it was due to TME
Infectious disease consulted who did not think it was a infectious event since the patient's HIV is well-controlled and his blood work was fine. Did not recommend an LP. Recommended against the use of antibiotics or antivirals.
Psychiatry was consulted who suspected that the patient was in benzodiazepine withdrawal because he had been receiving 1 mg Xanax but he usually gets 2 mg of Xanax which was resumed. In addition, patient slowly returned to his baseline and mother
denied any psychiatric history. Patient discharged on 2 mg of Xanax for 10 days until the patient was able to meet his ID doctor who prescribes his Xanax
He was also given a referral to a psychiatrist to follow-up.
Important imaging findings :
Brain MRI 08/01/2025
IMPRESSION: No evidence of acute intracranial abnormality.
Head CT 07/30/[address] of the brain
Ankle x-ray 07/30/25
Indication: Swelling with pain
here are no fractures or dislocations. There are degenerative changes with sclerosis and osteophytes about the ankle joint. There is mild soft tissue swelling medially. There are no lytic or sclerotic lesions.
IMPRESSION:
There are severe degenerative changes about the ankle but no evidence of an acute fracture.
Discharge Plan
-
Patient Disposition: Home (Routine Discharge)
Discharge Diagnosis/Procedures: Acute delirium secondary to most likely TME
Condition: Fair
Diet: Regular
Activity: As tolerated
Driving Restrictions: No driving
Bathing Restrictions: OK to Shower
Activity Restrictions/Additional Instructions:
Follow up with Neurology and psychiatry on outpatient basis
Referrals:
Deflina Briones DO [Active, Psychiatry] - in less than 1 week
Beverly Pires MD [Active, Neurology] - in less than 1 week
UNKNOWN - PT DOES,NOT KNOW [Family Provider] - in less than 1 week
Prescriptions:
New
alprazolam [Xanax] 2 mg tablet
2 mg PO HS Qty: 10 0RF
Continued
esomeprazole magnesium [Nexium] 40 MG capsule,delayed release(DR/EC)
40 mg PO BID
Isentress 400 MG tablet
400 mg PO BID
ondansetron HCl 8 mg Tablet
8 mg PO [id number] PRN (Reason: nausea)
hydromorphone 4 mg Tablet
4 mg PO Q6HPRN PRN (Reason: severe pains)
maraviroc 300 mg Tablet
300 mg PO BID
antihemophilic factor (recomb) 2,000 (+/-) unit Recon Soln
3,000 unit IV DAILY
Rx Instructions:
PT REPORTS 3000 UNITS IV PUSH ONCE DAILY.
polyethylene glycol 3350 [Miralax] 17 gram Powder In Packet
17 g PO AC Qty: 0 0RF
valacyclovir [Valtrex] 1 gram Tablet
1,000 mg PO BID Qty: 0 0RF
tamsulosin [Flomax] 0.4 mg Capsule
0.4 mg PO DAILY Qty: 0 0RF
imiquimod 5 % Cream In Packet
1 applic TOPICAL DAILY Qty: 0 0RF
Descovy 200-25 mg Tablet
1 tab PO DAILY Qty: 0 0RF
Discontinued
alprazolam [Xanax] 2 mg Tablet
2 mg PO BIDPRN PRN (Reason: anxiety)
Discharge Orders:
Discharge Patient (As Directed); Ordered 08/01/25
Ordered By: Sofiya Walden
Discharge Date and Time
Discharge Date/Time: 08/01/25 17:15
Print Language: NEPALI
--- NOTE | 2025-08-02 09:12 | W.PN.UPDATE ---
Update Note
Progress Note Update
Received [place] Text from [facility] recent admission bcx 11/04 drawn in ED is + gram-positive bacilli; most likely contaminant. Observe for now. Follow final cx result.
[2025-08-03 15:38] LABS: Syphilis/T. pallidum Ab Reflex Negative (Negative)
[2025-08-03 17:01] LABS: Lyme Disease DNA by PCR Not Detected; Lyme Source Blood
== END 2025-08-01 17:15 | disposition home or self-care (01) | DRG 91 ==
LOC: IMU 12:58
PROVIDERS: Physician Assistant Medical; Psychiatry & Neurology Neurology; Radiology Diagnostic Radiology; Student in an Organized Health Care Education/Training Program; ADMITTING PHYSICIAN Hospitalist; CONSULT PHYSICIAN Internal Medicine Infectious Disease; CONSULT PHYSICIAN Psychiatry & Neurology Neurology; EMERGENCY PHYSICIAN Emergency Medicine; OTHER PHYSICIAN Psychiatry & Neurology Psychiatry
DX: G92.8 Other toxic encephalopathy (principal); D66 Hereditary factor VIII deficiency; B20 Human immunodeficiency virus [HIV] disease; F11.20 Opioid dependence, uncomplicated; F05 Delirium due to known physiological condition; T42.4X6A Underdosing of benzodiazepines, initial encounter; Z66 Do not resuscitate; G89.4 Chronic pain syndrome; K59.09 Other constipation; K30 Functional dyspepsia; A63.0 Anogenital (venereal) warts; F41.1 Generalized anxiety disorder; I45.81 Long QT syndrome; M48.02 Spinal stenosis, cervical region; Z88.6 Allergy status to analgesic agent; Z79.899 Other long term (current) drug therapy; Z91.138 Patient's unintentional underdosing of medication regimen for other reason
CPT/HCPCS: 70450; 70551; 73610; 80048; 80306; 80307; 81003; 81015; 82077; 82550; 82607; 83735; 84439; 84443; 84550; 85025; 85240; 85610; 85652; 86140; 86255; 86361; 86780; 87015; 87040; 87070; 87205; 87207; 87476; 87536; 92610; 93005; 96361; 96374; 97162; 97166; 99285